=== PATIENT | female | born 1960 | race Caucasian/White ===

== ENCOUNTER 2024-10-10 04:54 | Emergency (ER) | payer BC, SELFPAY ==
[2024-10-10 05:00] VITALS: BP 138/85; PULSE 77; RESP 18; TEMP 36.8; O2SAT 96
--- NOTE | 2024-10-10 05:15 | XR_ITS ---
Examination: CT abdomen and pelvis without contrast. Coronal 3-D reconstructions. Sagittal 2-D reconstructions. Date and time of exam:October 10, 2024 0537 hrs. Indications: Right-sided flank and back pain beginning today, clinical diagnosis urinary tract infection CTDI: vol (mGy): 11 DLP: (mGycm): 612 Technique: Axial images of the abdomen have been obtained, 3 mm slice thickness Intravenous contrast material has not been administered. Low dose protocols were performed. One or more of the following dose reduction techniques were used; automated exposure control, adjustment of the mA and/or KV according to patient size, use of iterative reconstruction technique. Findings: No focal liver or splenic lesions Absent gallbladder Normal pancreas Small benign duodenal lipoma Mild to moderate bilateral renal parenchymal scar formation, no hydronephrosis or ureteral calculi Aorta normal size No pericecal inflammatory change Colonic diverticulosis, no diverticulitis Atrophic uterus No bladder mass or bladder calculi Advanced degenerative disc disease L5-S1 Impression: Mild to moderate bilateral renal parenchymal scar formation Perinephric stranding seen with urinary tract infection No renal or ureteral calculi, no hydronephrosis No bladder mass or bladder calculi
--- NOTE | 2024-10-10 05:15 | EDRME_ITS ---
Rapid Medical Screening Exam [facility] Arrival date/time: 10/10/24 04:54 64F with history of cholecystectomy presents to ED with 1 week of R flank pain, N/V and possibly dysuria. Chief Complaint: Back Pain/Injury Vital signs: Vital Signs Temperature 98.2 F 10/10/24 05:00 Pulse Rate 77 10/10/24 05:00 Respiratory Rate 18 10/10/24 05:00 Blood Pressure 138/85 H 10/10/24 05:00 Pulse Oximetry (%) 96 10/10/24 05:00 Oxygen Delivery Method Room Air 10/10/24 05:00
[2024-10-10] MEDS: ONDANSETRON ODT 4 MG TABRAP PO (05:24)
[2024-10-10] MEDS: KETOROLAC INJ 60 MG/2 ML VIAL IM (05:24)
[2024-10-10 05:38] LABS: Collection Type, Urine Clean Catch
[2024-10-10 05:57] LABS: Amphetamine/Methamp Scrn,U Positive (Negative); Barbiturate Screen,Urine Negative (Negative); Benzodiazepines Screen,Urine Negative (Negative); Benzoylecgonine Screen, Ur Negative (Negative); Fentanyl Screen,Urine Negative (Negative); Opiate Screen,Urine Negative (Negative); THC Screen,Urine Negative (Negative)
[2024-10-10 06:07] LABS: Bacteria,Urine 2+; Bilirubin,Urine Negative (Negative); Blood,Urine Negative (Negative); Clarity,Urine Clear (Clear/Hazy); Color,Urine Yellow (Lt Yel-Yel); Culture Indicated,Urine Yes; Glucose, Urine Negative (Negative); Hyaline Casts,Urine < 1 /hpf (0-1); Ketones,Urine Negative (Negative); Leukocyte Esterase,Urine Negative (Negative); Nitrite,Urine Negative (Negative); PH,Urine 5.5 (5.0-7.0); Protein,Urine Trace (Neg - Trace); RBC,Urine 3 /hpf (0-3); Specific Gravity,Urine 1.026 (1.001-1.035); Squamous Epithelial Cell,Urine 5 /hpf (0-5); WBC,Urine 7 /hpf (0-5)
[2024-10-10 06:19] LABS: Basophils # (Auto) 0.1 Thou/mm3 (0.0-0.2); Basophils % (Auto) 1 % (0-2.5); Eosinophils # (Auto) 0.5 Thou/mm3 (0.0-0.5); Eosinophils % (Auto) 5 % (0-10); Hematocrit 43.3 % (36.0-46.0); Hemoglobin 14.8 g/dL (12.0-16.0); Immature Granulocytes % (Auto) 0 % (0-0); Immature Granulocytes Auto 0.03 Thou/mm3 (0.00-0.00); Lymphocytes # (Auto) 3.8 Thou/mm3 (1.0-4.8); Lymphocytes % (Auto) 36 % (10-50); Mean Corpuscular HGB Conc 34.2 g/dl (31.0-37.0); Mean Corpuscular Volume 94 fL (80-100); Monocytes # (Auto) 0.8 Thou/mm3 (0.0-0.8); Monocytes % (Auto) 8 % (0-12); Neutrophils # (Auto) 5.2 Thou/mm3 (1.8-7.7); Neutrophils % (Auto) 50 % (37-80); Nucleated Red Blood Cell % 0 /100 WBC (0); Platelet Count 441 Thou/mm3 (140-440); RDW Standard Deviation 45.9 fL (36.4-46.3); Red Blood Count 4.63 Miln/mm3 (4.00-5.20); White Blood Count 10.4 Thou/mm3 (3.6-11.0)
--- NOTE | 2024-10-10 06:47 | PRELIM_ITS ---
CT scan of the abdomen and pelvis without intravenous contrast (axial sections with sagittal and dinorah nal reformats). October 10, 2024 at 0537 hoursClinical History: Right flank pain.Comparison: No prio r study is available for comparison.Findings:The lung bases are clear. Bilateral breast implants.The gallbladder is surgically absent. The liver, pancreas, spleen, kidneys and adrenals are unremarkable on this noncontrast study. No evidence of renal/ureteric calculus or hydroureteronephrosis. Small div erticulum of the 1st part of the duodenum. Within the 2nd part of the duodenum is a fat-density mass measuring 1 x 0.9 cm. No evidence of bowel obstruction. The appendix is within normal limits (axial i mage 177/263). There are multiple colonic diverticula without evidence of diverticulitis. There is no mesenteric or retroperitoneal adenopathy.The urinary bladder is incompletely distended at the time o f the examination. There is no free fluid or free air. The uterus is unremarkable. Calcific densities are seen in the pelvis, likely representing phleboliths.Degenerative changes are identified in the s pine. Thickening and atrophic changes of the right rectus muscle.Impression:1. No evidence of renal/u reteric calculus or hydroureteronephrosis. 2. Duodenal lipoma.3. Other findings as described above. R eport Electronically Signed By: Bret Littlejohn 10/10/2024 6:47:29 AM [EST]
[2024-10-10 07:09] LABS: Alanine Aminotransferase 41 U/L (10-49); Albumin, Serum 4.6 gm/dL (3.4-4.8); Albumin/Globulin Ratio 1.9 (1.2-2.2); Alkaline Phosphatase 97 U/L (46-116); Anion Gap 8 (7-16); Aspartate Amino Transferase 34 U/L (0-34); BUN/Creatinine Ratio 13 Ratio (12-20); Bilirubin,Total 0.5 mg/dL (0.3-1.2); Blood Urea Nitrogen 16 mg/dL (9-23); Calcium 9.7 mg/dL (8.3-10.6); Calcium (Corrected) 9.7 mg/dL (8.5-10.1); Carbon Dioxide 28.3 mMol/L (20.0-31.0); Chloride 105 mMol/L (98-107); Creatinine (Component) 1.2 mg/dL (0.6-1.3); Estimated Creatinine Clearance 67.8 mL/min (>60); Globulin 2.4 gm/dL (2.3-3.5); Glucose 94 mg/dL (74-106); Lipase 32 U/L (12-53); Osmolality,Calculated 282 (275-295); Potassium 3.9 mMol/L (3.4-5.1); Sodium 141 mMol/L (136-145); eGFR 51 See Note
[2024-10-10 07:42] VITALS: BP 191/110; PULSE 81; RESP 19; TEMP 36.5; O2SAT 97
--- NOTE | 2024-10-10 08:30 | EDNOTE_ITS ---
ED Back Injury Pain RME/HPI General Chief Complaint: Back Pain/Injury Stated Complaint: RIGHT SIDE BACK PAIN Time Seen by Provider: 10/10/24 08:24 Arrival date/time: 10/10/24 04:54 64-year-old female presents to the emergency department complaint of right flank pain patient reports pain worse with movement patient also reports dysuria patient reports no fever or vomiting Limitations: no limitations RME / HPI RME / HPI Narrative: 10/10/24 04:54 64F with history of cholecystectomy presents to ED with 1 week of R flank pain, N/V and possibly dysuria. Related Data Home Medications ?Medication ?Instructions ?Recorded ?Confirmed cholecalciferol (vitamin D3) 50 2,000 unit PO QDAY #0 caps 05/15/16 mcg (2,000 unit) capsule (Vitamin D3) ospemifene 60 mg tablet (Osphena) ##0 05/15/16 Previous Rx's ?Medication ?Instructions ?Recorded ciprofloxacin HCl 500 mg tablet 500 mg PO BID 7 days #14 tabs 10/10/24 ibuprofen 600 mg tablet 600 mg PO Q6H #30 tabs 10/10/24 ondansetron 4 mg disintegrating 4 mg PO Q8H PRN nausea and 10/10/24 tablet vomiting #10 tabs phenazopyridine 100 mg tablet 100 mg PO TID 2 days #6 tabs 10/10/24 (Pyridium) Allergies Allergy/AdvReac Type Severity Reaction Status Date / Time Sulfa (Sulfonamide Allergy Nausea Verified 10/10/24 04:59 Antibiotics) Review of Systems Review of Systems Systems Reviewed: All systems reviewed, normal except as documented Constitutional Constitutional: Reports system reviewed and no additional complaints, except as documented, Denies fever(s) and Denies headache(s) Eyes Eyes: Reports system reviewed and no additional complaints, except as documented and Denies blurry vision ENT Ears, Nose, Mouth, and Throat: Reports system reviewed and no additional complaints, except as documented, Denies headache(s), Denies nasal congestion and Denies nasal discharge Cardiovascular Cardiovascular: Reports system reviewed and no additional complaints, except as documented, Denies chest pain and Denies dyspnea Respiratory Respiratory: Reports system reviewed and no additional complaints, except as documented, Denies chest congestion, Denies cough and Denies dyspnea Gastrointestinal Gastrointestinal: Reports system reviewed and no additional complaints, except as documented and Denies abdominal pain Genitourinary Genitourinary: Reports system reviewed and no additional complaints, except as documented, Denies abnormal vaginal bleeding, Reports dysuria and Denies pelvic pain Integumentary/Breasts Skin/Breast: Reports system reviewed and no additional complaints, except as documented and Denies rash Neurologic Neurologic: Reports system reviewed and no additional complaints, except as documented, Reports as per HPI and Denies headache(s) Past Medical History Past Medical History NEUROLOGIC: Negative Neurological Disorders CARDIAC: Negative Cardiac Disorders Social History SMOKING STATUS: Current every day smoker ED Exam General Limitations: Present no limitations General appearance: Present alert and in no apparent distress Head Head exam: Present atraumatic Eye Eye exam: Present normal appearance, PERRL and EOMI ENT ENT exam: Present normal exam, normal oropharynx and mucous membranes moist Neck Neck exam: Present normal inspection, full ROM and trachea midline Chest Chest inspection: Present normal inspection and symmetric chest wall rise Respiratory Respiratory exam: Present normal lung sounds bilaterally Cardiovascular Cardiovascular exam: Present regular rate, normal rhythm and normal heart sounds Abdominal Exam Abdominal exam: Present soft and normal bowel sounds; Absent distention, tenderness, guarding, rebound or rigidity Extremities Exam Extremities exam: Present normal inspection and full ROM Back Exam Back exam: Present normal inspection and full ROM; Absent CVA tenderness (R) Neurological Exam Neurological exam: Present alert, oriented X3 and CN II-XII intact Psychiatric Psychiatric exam: Present normal affect and normal mood Skin Skin exam: Present warm, dry, intact and normal color Course Quality Measures none Orders Category Date Time Status CT abdomen pelvis wo con Stat Exams 10/10/24 05:15 Completed CBC Stat Lab 10/10/24 05:55 Completed CMP [Comprehensive Metabolic Panel] Stat Lab 10/10/24 05:55 Completed Drug Screen,Urine Stat Lab 10/10/24 05:25 Completed Lipase Stat Lab 10/10/24 05:55 Completed Urinalysis, C/S if Indicated Stat Lab 10/10/24 05:25 Completed Urine Culture Stat Lab 10/10/24 05:25 Received Ketorolac Inj [Toradol Inj] Med 10/10/24 05:15 Discontinued 60 mg IM X1 ONE Ondansetron Odt [Zofran Odt] Med 10/10/24 05:15 Discontinued 4 mg PO X1 ONE Vital Signs Vital signs: Vital Signs Temperature 98.2 F 10/10/24 05:00 Pulse Rate 77 10/10/24 05:00 Respiratory Rate 18 10/10/24 05:00 Blood Pressure 138/85 H 10/10/24 05:00 Pulse Oximetry (%) 96 10/10/24 05:00 Oxygen Delivery Method Room Air 10/10/24 05:00 O2 saturation 96% room air within normal limits Back Pain / Injury MDM Narrative MDM Narrative:: 64-year-old female presents to the emergency department complaint of right flank pain patient reports pain worse with movement patient also reports dysuria patient reports no fever or vomiting On exam patient well-appearing patient does not appear ill or toxic my colleague ordered lab work as well as CT scan I reviewed the patient's lab work and CT scan lab work consistent with UTI CT scan unremarkable Patient did test positive for methamphetamine Patient discharged home in no distress to follow-up with primary care doctor in the next 24 to 48 hours and for any worsening symptoms to return to the ER immediately Patient data External records reviewed:: [facility] previous records Clinical information provided by:: patient Social determinants that could affect healthcare access:: substance use Patient has the following chronic illnesses:: See history How is presenting disease/condition affected by chronic disease/condition?: uneffected by Evaluation data The following diagnostics were reviewed and interpreted by me:: lab results and radiology exam(s) Lab and/or radiology exams considered but not ordered:: Labs and radiology obtained Interpretation Summary: Reviewed by me Medications / Prescriptions Medications or Prescriptions considered but not ordered:: Given Medication administrations:: Medication Administration History Discontinued Medications Ketorolac Tromethamine (Ketorolac Inj 60 Mg/2 Ml Vial) 60 mg IM X1 ONE Stop: 10/10/24 05:16 Last Admin: 10/10/24 05:24 Dose: 60 mg Documented By: LATONIA Ondansetron HCl (Ondansetron Odt 4 Mg Tabrap) 4 mg PO X1 ONE; Protocol Stop: 10/10/24 05:16 Last Admin: 10/10/24 05:24 Dose: 4 mg Documented By: LATONIA Given Consultations Consultation(s) initiated? (list below): No Diagnosis Differential diagnosis back pain/injury: lumbar radiculopathy, sciatica, strain of lumbar region and discitis Most likely diagnosis given after review of the tests above:: Back pain Admission Indicated Admission indicated?: not indicated Admission Request Was there a request for admission?: No Disposition Plan Disposition Plan: Discharge Discharge Attestation Discharge Attestation: The patient and all family members were given an opportunity to ask questions and understood the discharge instructions. Discharge instructions specifically effects, indications for sooner follow up or return to the emergency department, and the expected course of current diagnosis. Patient condition: Stable Discharge Plan Plan Patient Disposition: HOME (Self Care) Disposition Comment: Stable Prescriptions/Referrals Prescriptions/Med Rec: New ciprofloxacin HCl 500 mg tablet 500 mg PO BID 7 Days Qty: 14 0RF phenazopyridine [Pyridium] 100 mg tablet 100 mg PO TID 2 Days Qty: 6 0RF ibuprofen 600 mg tablet 600 mg PO Q6H Qty: 30 0RF ondansetron 4 mg tablet,disintegrating 4 mg PO Q8H PRN (Reason: nausea and vomiting) Qty: 10 0RF No Action cholecalciferol (vitamin D3) [Vitamin D3] 2,000 UNIT capsule 2,000 unit PO QDAY Qty: 0 ospemifene [Osphena] 60 MG tablet Qty: 0 Referrals: Víctor Snyder MD [Primary Care Provider] - 10/12/24 Problem List Clinical Impression: UTI (urinary tract infection), Flank pain Patient/Caregiver Discharge Instructions Education Materials: ED Flank Pain, Uncertain Cause Additional Instructions: Please follow up with your primary care doctor in the next 24-48hrs for any worsening symptoms return here immediately Print Language: Sinhala Stand Alone Forms: Court Award Info., Patient Portal Info Letter PA/AUGUSTINA Supervising Physician PA/AUGUSTINA Supervising Physician: Dr Clay
== END 2024-10-10 09:14 | disposition home or self-care (01) ==
PROVIDERS: Physician Assistant; Emergency Provider Emergency Medicine; PCP Family Medicine
DX: N39.0 Urinary tract infection, site not specified (principal); R10.9 Unspecified abdominal pain; R11.2 Nausea with vomiting, unspecified
CPT/HCPCS: 36415; 74176; 80053; 80307; 81001; 83690; 85025; 87077; 87086; 87186; 96372; 99284; J1885; Q0162

== ENCOUNTER → 2025-09-01 | Outpatient (CLI) | payer MEDICARE, BC, SELFPAY ==
[2025-09-01 13:19] LABS: Basophils # (Auto) 0.1 Thou/mm3 (0.0-0.2); Basophils % (Auto) 1 % (0-2.5); Eosinophils # (Auto) 0.3 Thou/mm3 (0.0-0.5); Eosinophils % (Auto) 3 % (0-10); Hematocrit 45.5 % (36.0-46.0); Hemoglobin 15.6 g/dL (12.0-16.0); Immature Granulocytes Auto 0.05 Thou/mm3 (0.00-0.00); Lymphocytes # (Auto) 4.4 Thou/mm3 (1.0-4.8); Lymphocytes % (Auto) 34 % (10-50); Mean Corpuscular HGB Conc 34.3 g/dl (31.0-37.0); Mean Corpuscular Hemoglobin 31.5 pg (25.0-35.0); Mean Corpuscular Volume 92 fL (80-100); Monocytes # (Auto) 0.9 Thou/mm3 (0.0-0.8); Monocytes % (Auto) 7 % (0-12); Neutrophils # (Auto) 7.4 Thou/mm3 (1.8-7.7); Neutrophils % (Auto) 56 % (37-80); Nucleated Red Blood Cell # 0.00 Thou/mm3 (0.00-0.00); Nucleated Red Blood Cell % 0 /100 WBC (0); Platelet Count 447 Thou/mm3 (140-440); RDW Standard Deviation 42.3 fL (36.4-46.3); Red Blood Count 4.95 Miln/mm3 (4.00-5.20); White Blood Count 13.2 Thou/mm3 (3.6-11.0)
[2025-09-01 13:30] LABS: Glucose Estimated Average 111 mg/dL (80-131); Hemoglobin A1C 5.5 % Hgb (4.8-6.0)
[2025-09-01 13:47] LABS: Alanine Aminotransferase 29 U/L (10-49); Albumin, Serum 4.6 gm/dL (3.4-4.8); Albumin/Globulin Ratio 1.8 (1.2-2.2); Alkaline Phosphatase 88 U/L (46-116); Anion Gap 8 (7-16); Aspartate Amino Transferase 35 U/L (0-34); BUN/Creatinine Ratio 11 Ratio (12-20); Bilirubin,Total 0.8 mg/dL (0.3-1.2); Blood Urea Nitrogen 12 mg/dL (9-23); Calcium 9.5 mg/dL (8.3-10.6); Calcium (Corrected) 9.5 mg/dL (8.5-10.1); Carbon Dioxide 29.6 mMol/L (20.0-31.0); Chloride 103 mMol/L (98-107); Creatinine (Component) 1.1 mg/dL (0.6-1.3); Globulin 2.5 gm/dL (2.3-3.5); Glucose 101 mg/dL (74-106); Osmolality,Calculated 280 (275-295); Potassium 3.2 mMol/L (3.4-5.1); Sodium 141 mMol/L (136-145); Thyroid Stimulating Hormone 2.73 uIU/mL (0.55-4.78); Total Protein 7.1 gm/dL (5.7-8.2); eGFR 56 See Note
[2025-09-01 14:27] LABS: Collection Type, Urine Clean Catch
[2025-09-01 15:43] LABS: Cardiac Risk Estimate 3.0 RATIO (3.7-5.6); Cholesterol 172 mg/dL (132-200); HDL Cholesterol 57 mg/dL (40-60); LDL Cholesterol,Calculated 84 mg/dL (0-130); Triglycerides 156 mg/dL (30-150)
[2025-09-01 15:50] LABS: Bacteria,Urine 3+; Bilirubin,Urine Negative (Negative); Blood,Urine Negative (Negative); Color,Urine Yellow (Lt Yel-Yel); Glucose, Urine Negative (Negative); Hyaline Casts,Urine < 1 /hpf (0-1); Ketones,Urine Negative (Negative); Leukocyte Esterase,Urine Positive (Negative); Nitrite,Urine Positive (Negative); PH,Urine 5.5 (5.0-7.0); Protein,Urine Trace (Neg - Trace); RBC,Urine 2 /hpf (0-3); Specific Gravity,Urine 1.021 (1.001-1.035); Squamous Epithelial Cell,Urine 12 /hpf (0-5); Urobilinogen,Urine Negative mg/dL (0.0-1.0); WBC,Urine 20 /hpf (0-5)
[2025-09-01 15:52] LABS: Clarity,Urine Hazy (Clear/Hazy)
== END | disposition home or self-care (01) ==
PROVIDERS: PCP Family Medicine; Referring Provider Family Medicine; Visit Provider Family Medicine
DX: Z00.00 Encounter for general adult medical examination without abnormal findings (principal); I10 Essential (primary) hypertension; Z86.32 Personal history of gestational diabetes; Z83.3 Family history of diabetes mellitus
CPT/HCPCS: 36415; 80053; 80061; 81001; 83036; 84443; 85025